=== PATIENT | female | born 1975 | race Caucasian/White ===

== ENCOUNTER 2022-09-21 09:58 | Emergency (ER) | payer MEDICAID, SELFPAY ==
--- NOTE | ~2022-09-21 | XR_ITS ---
EXAMINATION: XR ankle LT min 3V DATE: 09/21/2022 INDICATION: Left ankle pain TECHNIQUE: Anteroposterior, lateral, mortise, and additional oblique view of the ankle were obtained. COMPARISON: None. FINDINGS: No fracture, dislocation, or subluxation. The bones, soft tissues, and joint spaces are nor mal. IMPRESSION: 1. No acute osseous abnormality. Reviewed, dictated and finalized at location A.
--- NOTE | ~2022-09-21 | XR_ITS ---
EXAMINATION: XR knee LT min 4V DATE: 09/21/2022 INDICATION: Left knee pain TECHNIQUE: Four views of the left knee were obtained. COMPARISON: None. FINDINGS: Alignment is normal. No fracture or osteochondral lesion. Joint spaces are normal with no e rosions. No joint effusion/synovitis. Soft tissues are unremarkable. IMPRESSION: 1. No acute osseous abnormality. Reviewed, dictated and finalized at location A.
== END 2022-09-21 10:55 | disposition home or self-care (01) ==
PROVIDERS: Emergency Provider Nurse Practitioner Family
DX: S50.01XA Contusion of right elbow, initial encounter (principal); S50.12XA Contusion of left forearm, initial encounter; S83.411A Sprain of medial collateral ligament of right knee, initial encounter; S93.401A Sprain of unspecified ligament of right ankle, initial encounter; W10.8XXA Fall (on) (from) other stairs and steps, initial encounter
CPT/HCPCS: 73564; 73610; 99214; G0463

== ENCOUNTER 2023-03-22 11:18 | Emergency (ER) | payer BC, SELFPAY ==
--- NOTE | 2023-03-22 11:33 | ED.GENADULT ---
HPI - General Adult General Chief complaint: Upper Respiratory Infection Stated complaint: flu-like symptoms Time Seen by Provider: 03/22/23 12:00 Source: patient, RN notes reviewed and old records reviewed Mode of arrival: ambulatory Limitations: no limitations History of Present Illness HPI narrative: 47-year-old female presents to [facility] with complaints fevers, myalgia, nausea vomiting, for 2 days. Patient denies cough or congestion. Patient denies abdominal pain. MD complaint: Nausea vomiting Onset (ago): day(s) (2) Related Data Allergies Allergy/AdvReac Type Severity Reaction Status Date / Time No Known Allergies Allergy Verified 03/22/23 11:59 Review of Systems Constitutional: Constitutional: Reports as per HPI, Reports body ache(s), Reports chills and Reports fever(s) Eyes: Eyes: Reports no additional eye complaints ENT: Reports nasal discharge Cardiovascular: Cardiovascular: Reports no additional cardiovascular complaints Respiratory: Respiratory: Reports no additional respiratory complaints, Denies chest congestion and Denies cough Gastrointestinal: Gastrointestinal: Reports as per HPI, Denies abdominal pain, Reports nausea and Reports vomiting Neurologic: Reports system reviewed and no additional complaints, except as documented PMFSH Comments At the time of my signature, I reviewed and agree with the nursing past medical, surgical, social, and family history. There is no relevant family history pertinent to the patient complaint. Exam Const: General: cooperative, no acute distress, ill appearing and well nourished Nutritional Appearance: well nourished Orientation/consciousness: patient oriented x3 Limitations: no limitations HENMT: Head: normal to inspection and normocephalic Ears: external ears normal, TM's normal bilaterally, mastoids normal and Abnormal EAC present Face/Nose/Sinus: normal facial exam Face and sinus: normal facial exam Mouth: Yes Normal oral and palatal mucosa present, Yes oropharynx normal and Yes moist mucous membranes Throat: posterior oropharynx normal, tonsils normal, uvula midline and no uvular edema Eyes: General: appearance normal, both eyes and all related structures Sclera: sclerae normal Pupils: Equal, round and reactive pupils present Resp: Effort & Inspection: normal respiratory effort, able to speak in complete sentences, no audible wheezes, no cough, no respiratory distress and no retractions Auscultation: clear to auscultation bilaterally, no crackles, no rales, no rhonchi and no wheezes Cardio: Rate: regular rate Rhythm: regular rhythm GI: Inspection: normal to inspection and non-distended GI Palp: No abdominal tenderness, Yes Soft to palpation, No Tenderness to palpation present (GI), No Guarding due to palpation present (GI) and No Rigid due to palpation Auscultation: normal bowel sounds Skin: General skin exam: normal color and no rashes or lesions noted Neuro: General: patient oriented x3 Cranial nerves: Yes Equal, round and reactive pupils present Psych: Appearance: grossly normal Course Course Emergency Course: Some parts of this dictation were generated by voice recognition software and may contain typographical and/or grammatical inaccuracies. Level of Care: Express Care Visit Vital Signs Vital signs: Vital Signs Temperature 98.1 F 03/22/23 11:41 Pulse Rate 91 03/22/23 11:41 Respiratory Rate 18 03/22/23 11:41 Blood Pressure 113/77 03/22/23 11:41 Pulse Oximetry 98 03/22/23 11:41 Oxygen Delivery Room Air 03/22/23 11:41 Temperature 98.1 F 03/22/23 11:41 Pulse Rate 91 03/22/23 11:41 Respiratory Rate 18 03/22/23 11:41 Blood Pressure 113/77 03/22/23 11:41 Pulse Oximetry 98 03/22/23 11:41 Oxygen Delivery Room Air 03/22/23 11:41 Reviewed Medical Decision Making MDM Narrative Medical decision making narrative: patient with complaint of fever myalgia, nausea vomiting for 2 days.
[2023-03-22 11:41] VITALS: BP 113/77; PULSE 91; RESP 18; TEMP 36.7; O2SAT 98
== END 2023-03-22 12:14 | disposition home or self-care (01) ==
PROVIDERS: Emergency Provider Registered Nurse
DX: U07.1 COVID-19 (principal)
CPT/HCPCS: 87081; 87426; 87804; 87880; 99213; C9803; G0463

== ENCOUNTER 2023-08-16 08:33 | Emergency (ER) | payer BC, SELFPAY ==
--- NOTE | ~2023-08-16 | CT_ITS ---
EXAMINATION: CT abdomen pelvis w con DATE: 08/16/2023 10:08 INDICATION: Upper abdominal pain. Nausea and vomiting. Blood in stool. TECHNIQUE: Computed tomography (CT) of the abdomen and pelvis was performed with 100 mL Omnipaque 350 intravenous contrast. Automated exposure control and iterative reconstruction technique were employe d. The dose-length product was 880.86 mGy-cm. COMPARISON: None. FINDINGS: The visualized portions of the lung bases demonstrate mild atelectasis. No pleural effusion . The heart size is normal. No pericardial effusion. The liver and spleen are normal. There are erazo es of cholecystectomy. The pancreas and adrenal glands are normal. There is a 1 mm stone in right kid mini. There are cysts in left kidney measuring up to 12 mm. There is a 2.5 cm fibroid in the uterus. T here are no dilated loops of bowel. The appendix is normal. There are no pathologically enlarged lymp h nodes. There is no free intraperitoneal fluid. There is mild thoracic and lumbar spondylosis. There is mild chronic anterior wedging of multiple thoracic vertebral bodies. IMPRESSION: 1. No etiology for the patient's symptoms. Reviewed, dictated and finalized at location A.
[2023-08-16 08:36] VITALS: BP 127/82; PULSE 72; RESP 16; TEMP 37; O2SAT 98
[2023-08-16 09:00] VITALS: BP 130/81; PULSE 75; RESP 16; O2SAT 97
[2023-08-16 09:01] LABS: Basophils Absolute Auto 0.1 K/mm3 (0.0-0.1); Basophils Percent Auto 0.5 % (0.2-1.2); Eosinophils Absolute Auto 0.1 K/mm3 (0-0.3); Eosinophils Percent Auto 0.7 % (0-4.4); Hematocrit 42.8 % (37.0-47.0); Immature Granulocyte Absolute 0.05 K/mm3 (0.00-0.031); Immature Granulocyte Percent A 0.5 % (0-0.5); Lymphocytes Absolute Auto 1.89 K/mm3 (0.9-3.2); Lymphocytes Percent Auto 17.4 % (18.3-44.2); Mean Corpuscular HGB Conc 32.7 g/dl (32-36); Mean Corpuscular Volume 91.6 fl (80-100); Mean Platelet Volume 10.2 fl (7.4-10.4); Monocytes Absolute Auto 0.7 K/mm3 (0.1-0.6); Monocytes Percent Auto 6.4 % (2.6-8.5); Neutrophils Absolute Auto 8.1 K/mm3 (1.3-6.7); Neutrophils Percent Auto 74.5 % (45.5-73.1); Platelet Count Result 282 k/mm3 (150-375); Red Blood Count 4.67 M/mm3 (4.2-5.4); Red Cell Distribution Width 13.9 % (11.5-14.5); White Blood Count 10.9 K/mm3 (4.5-10.0)
[2023-08-16] MEDS: SODIUM CHLORIDE 0.9% IV 1,000 ML 999 ML IV CONT (09:02)
[2023-08-16] MEDS: HYDROmorphone HCL INJ (*CRX) 1 MG/ML SYR 0.5 MG IV PUSH (09:03)
[2023-08-16] MEDS: ONDANSETRON INJ 4 MG/2 ML VIAL IV PUSH (09:07)
[2023-08-16 09:14] LABS: Alanine Aminotransferase 29 U/L (6-35); Albumin Level 4.7 g/dL (3.5-5.1); Alkaline Phosphatase 92 U/L (38-126); Anion Gap 9 mmol/L (4-12); Aspartate Amino Transferase 26 U/L (14-36); Bilirubin,Total 0.5 mg/dL (0.2-1.3); Blood Urea Nitrogen 11 mg/dL (7-17); Calcium 9.4 mg/dL (8.4-10.2); Carbon Dioxide 21 mmol/L (22-30); Chloride 108 mmol/L (98-107); Estimated CRCL calculation 111 ml/min; Estimated Glomerular Filt Rate > 60; Glucose 112 mg/dL (65-110); Lipase 126 U/L (23-300); Potassium 4.4 mmol/L (3.4-5.0); Sodium 138 mmol/L (137-145)
--- NOTE | 2023-08-16 09:45 | ED.ABDPAIN ---
HPI - Abdominal Pain General Chief Complaint: Abdominal Pain Stated Complaint: abd pain Time Seen by Provider: 08/16/23 08:34 History of Present Illness HPI narrative: 48-year-old female presenting to the emergency department for evaluation upper abdominal pain, nausea vomiting and diarrhea with bright red blood per rectum. Patient states last night after eating beets that she was having some upper abdominal pain. Patient did take some [place] last night byrd she did not feel has helped her symptoms. Patient did develop nausea vomiting and also had multiple bouts of diarrhea. Patient states that she was having some increased lower abdominal discomfort and after approximately 20 bouts of diarrhea started to notice some blood in the stool. Patient states this bleeding does seem consistent with her previous hemorrhoids secondary to childbirth. Patient does have a prior history of a cholecystectomy. Patient denies any prior history of ulcers or gastritis. Related Data Allergies Allergy/AdvReac Type Severity Reaction Status Date / Time No Known Allergies Allergy Verified 03/22/23 11:59 Review of Systems Review of Systems: All systems reviewed & are unremarkable except as noted in HPI and below Exam Narrative: APPEARANCE: Well appearing, no pain, no distress, well-nourished. HEAD: normocephalic, atraumatic. EYES: PERRLA/EOMI, conjunctivae clear. NOSE: Normal no drainage THROAT: Pharynx clear, no exudate. NECK: Supple. No adenopathy, no masses. RESPIRATORY: Airway patent, respirations nonlabored. Clear to auscultation bilaterally, no rales, rhonchi, wheezing. CARDIOVASCULAR: Regular rate and rhythm without murmurs rubs or gallops. ABDOMINAL: Epigastric tenderness to palpation MUSCULOSKELETAL: Moves all extremities. Strength/ROM intact, No edema, No calf tenderness. NEURO: Alert. Cranial nerves II through XII intact. Grossly intact SKIN: Warm, dry. Normal Color Course Vital Signs Vital signs: Vital Signs Temperature 98.6 F 08/16/23 08:36 Pulse Rate 72 08/16/23 08:36 Respiratory Rate 16 08/16/23 08:36 Blood Pressure 127/82 08/16/23 08:36 Pulse Oximetry 98 08/16/23 08:36 Oxygen Delivery Room Air 08/16/23 08:36 Temperature 98.6 F 08/16/23 08:36 Pulse Rate 88 08/16/23 11:16 Respiratory Rate 16 08/16/23 11:16 Blood Pressure 131/73 08/16/23 11:16 Pulse Oximetry 99 08/16/23 11:16 Oxygen Delivery Room Air 08/16/23 08:36 MDM - Abdominal Pain MDM Narrative Medical decision making narrative: 48-year-old female presented to the emergency department for evaluation for nausea vomiting diarrhea epigastric pain and bright red blood per rectum. Patient did feel improved with treatment with IV pain medications and IV fluids. Patient is afebrile but does have a minor leukocytosis of 10.9 and a stable hemoglobin of 14. Patient has no acute abnormalities on her CMP and patient has a normal lipase. Patient did feel improved with treatment. CT scan showed no acute abnormality. Patient was Hemoccult negative on her rectal exam but does have enlarged external hemorrhoid. Patient was updated on the plan for home including clear liquid diet, Zofran and omeprazole. Patient was encouraged close follow-up with her primary care physician. All questions concerns were addressed. Differential Diagnosis Differential diagnosis: Likely abdominal pain, acute appendicitis, calculus of kidney, constipation, diverticulitis, gastroenteritis, pancreatitis and small bowel obstruction Lab Data Attestation: I reviewed the patient's lab results. 08/16/23 08:51 08/16/23 08:51 Labs: Lab Results 08/16/23 08/16/23 Range/Units 08:51 09:44 WBC 10.9 H (4.5-10.0) K/mm3 RBC 4.67 (4.2-5.4) M/mm3 Hgb 14.0 (12.0-15.0) g/dL Hct 42.8 (37.0-47.0) % MCV 91.6 (80-100) fl MCH 30.0 (26-34) pg MCHC 32.7 (32-36) g/dl RDW 13.9 (11.5-14.5) % Plt Count 28
[2023-08-16 09:53] LABS: Appearance Urine Clear (Clear); Bacteria Urine 1+ /hpf; Bilirubin Urine Negative (Negative); Blood Urine 2+ (Negative); Color Urine Yellow (Yellow); Glucose Urine UA Negative (Negative); Ketones Urine Trace mg/dL (Negative); Leukocyte Esterase Ur Negative LEU/UL (Negative); Nitrate Urine Negative (Negative); Non Pathogenic Casts 0-2; Protein Urine Negative (Negative); RBC Urine 21-50 /hpf (0-2); Specific Grav Ur 1.023 (1.001-1.035); Squamous Epithelial Cell Urine Few /hpf (Few); Urobilinogen Urine 0.2 mg/dL (<2.0); WBC Urine 0-5 /hpf (0-3); pH Urine 5.5 (5.0-9.0)
[2023-08-16 09:58] LABS: Add Urine Microscopic? YES
[2023-08-16] MEDS: PANTOPRAZOLE SODIUM IV 40 MG VIAL IV PUSH (10:09)
[2023-08-16 11:16] VITALS: BP 131/73; PULSE 88; RESP 16; O2SAT 99
== END 2023-08-16 11:17 | disposition home or self-care (01) ==
PROVIDERS: Emergency Provider Emergency Medicine
DX: R10.13 Epigastric pain (principal); Z90.49 Acquired absence of other specified parts of digestive tract; K64.4 Residual hemorrhoidal skin tags
CPT/HCPCS: 36415; 74177; 80053; 81001; 81025; 83690; 85025; 96361; 96374; 96375; 99284; C9113; J1170; J2405; J7030; Q9967